=== PATIENT | male | born 1995 | race Caucasian/White ===

== ENCOUNTER 2017-07-11 17:07 | Emergency (ER) | payer OTHER ==
[2017-07-11] MEDS ORDERED: ONDANSETRON 4 MG/2 ML VIAL IVP ONE ×2 (17:17→18:39)
[2017-07-11] MEDS ORDERED: fentaNYL 100 MCG/2 ML INJ NASAL ONE (17:17)
[2017-07-11] MEDS ORDERED: DIAZEPAM 10 MG/2 ML SYR IVP ONE (17:17)
[2017-07-11] MEDS ORDERED: NS 1,000 ML IV ONE ×2 (17:17→18:39)
--- NOTE | 2017-07-11 17:17 | EDPHY ---
H & P HPI/ROS: HPI CHIEF COMPLAINT: Snowboarding accident, low back pain HISTORY OF PRESENT ILLNESS: This patient otherwise healthy 22-year-old male no significant medical history except for anxiety he presents emergency room for low back pain after he fell on his snowboard. Patient reports he was trying to do a 360 and caught the back edge of his snowboard this caused an delayed directly on his low back. He now has midline low back pain in the lumbar region. He denies any focal numbness or tingling he denies any saddle anesthesia he denies any leg weakness. Pain is mainly in his midline lumbar low region. He received 200 mcg of IV fentanyl in route. He fell at [facility] [place]. Past Medical History: Anxiety Past Surgical History: No significant surgical history Social History: Denies drugs alcohol tobacco products except occasional marijuana. Family History: Noncontributory ROS REVIEW OF SYSTEMS: A comprehensive 10 point review of systems is otherwise negative aside from elements mentioned in the history of present illness. Exam Constitutional appears well nontoxic, triage nursing summary reviewed, vital signs reviewed, awake/alert. Eyes normal conjunctivae and sclera, EOMI, PERRLA. HENT normal inspection, atraumatic, moist mucus membranes, no epistaxis, neck supple/ no meningismus, no raccoon eyes. Respiratory clear to auscultation bilaterally, normal breath sounds, no respiratory distress, no wheezing. Cardiovascular rate normal, regular rhythm, no murmur, no edema, distal pulses normal. Gastrointestinal soft, non-tender, no rebound, no guarding, normal bowel sounds, no distension, no pulsatile mass. Genitourinary no CVA tenderness. Musculoskeletal tender palpation in the midline lumbar region, and paravertebral region lumbar spine, no obvious step-offs or crepitus on exam,, full range of motion, no calf swelling, no tenderness of extremities, no meningismus, good pulses, neurovascularly intact. No leg weakness. No saddle anesthesia. Skin pink, warm, & dry, no rash, skin atraumatic. Neurologic awake, alert and oriented x 3, AAOx3, moves all 4 extremities equally, motor intact, sensory intact, CN II-XII intact, normal cerebellar, normal vision, normal speech. Psychiatric normal mood/affect. Heme/Lymph/Immune no lymphadenopathy. Differential Diagnosis: Includes but is not limited to in a particular order lumbar strain, lumbar compression fracture, degenerative disc disease, muscle spasm Medical Decision Making: Plan for this patient IV establishment blood draw, IV fluids for hydration, 100 mcg IV fentanyl for pain control 2.5 mg IV Valium for muscle spasm, CT lumbar spine. Re-evaluation: CT of the lumbar spine called to me by Dr. Jonn Montanez. Reason for CT scan trauma; this shows a stress fracture of the right L4. However no compression fracture. 1839: I did re-evaluate this patient this time. He is feeling better but still has 4/10 low back pain. Ovary medicated with Toradol, IV fluids and Zofran for nausea. 1910: Patient is feeling much better after IV Toradol. He p.o. challenge well. He is requesting discharge. Will ambulate to see if he can walk with his back injury. If he is unable to ambulate he will need to be admitted to the hospital. 1912: This patient ambulated well throughout the emergency room without any difficulty. Source: Patient, EMS Constitutional: Initial Vital Signs Temperature (C) 36.6 C 07/11/17 17:07 Heart Rate 86 07/11/17 17:07 Respiratory Rate 22 H 07/11/17 17:07 Blood Pressure 103/77 07/11/17 17:07 O2 Sat (%) 98 07/11/17 17:07 O2 Delivery Mode Room Air Allergies/Adverse Reactions: No Known Allergies Allergy (Verified 07/11/17 17:13) Home Medications: Medication Instructions Recorded Hydrocodone/APAP 5/325 [[place] 1 - 2 tab PO Q4H PRN #10 tab 07/11/17 5/325] Ibuprofen [Motrin (*)] 800 mg PO Q6-8PRN #10 tab 07/11/17 Medical Decision Making - Diagnostics Imaging Results: Imaging Impressions Lumbar Spine CT 07/11/17 17:17 Impression: 1. Lucency associated with sclerosis in the right L4 pedicle, suggesting stress fracture. If pain persists and clinical suspicion warrants, consider MRI. 2. Additional findings as above. Findings discussed with Man Zamudio MD, 07/11/2017 at 18:11. - Data Points Laboratory Results: Laboratory Results 07/11/17 18:04 07/11/17 18:04 07/11/17 07/11/17 18:04 18:04 WBC 16.61 10^3/uL H 10^3/uL (3.80-9.50) RBC 5.06 10^6/uL 10^6/uL (4.40-6.38) Hgb 16.3 g/dL g/dL (13.7-17.5) Hct 45.5 % % (40.0-51.0) MCV 89.9 fL fL (81.5-99.8) MCH 32.2 pg pg (27.9-34.1) MCHC 35.8 g/dL g/dL (32.4-36.7) RDW 12.2 % % (11.5-15.2) Plt Count 260 10^3/uL 10^3/uL (150-400) MPV 11.8 fL H fL (8.7-11.7) Neut % (Auto) 77.7 % H % (39.3-74.2) Lymph % (Auto) 13.9 % L % (15.0-45.0) [place] % (Auto) 6.7 % % (4.5-13.0) Eos % (Auto) 0.5 % L % (0.6-7.6) Baso % (Auto) 0.4 % % (0.3-1.7) Nucleat RBC Rel Count 0.0 % % (0.0-0.2) Absolute Neuts (auto) 12.91 10^3/uL H 10^3/uL (1.70-6.50) Absolute Lymphs (auto) 2.31 10^3/uL 10^3/uL (1.00-3.00) Absolute Monos (auto) 1.12 10^3/uL H 10^3/uL (0.30-0.80) Absolute Eos (auto) 0.08 10^3/uL 10^3/uL (0.03-0.40) Absolute Basos (auto) 0.06 10^3/uL 10^3/uL (0.02-0.10) Absolute Nucleated RBC 0.00 10^3/uL 10^3/uL (0-0.01) Immature Gran % 0.8 % % (0.0-1.1) Immature Gran # 0.13 10^3/uL H 10^3/uL (0.00-0.10) Sodium 144 mEq/L mEq/L (134-144) Potassium 4.7 mEq/L mEq/L (3.5-5.2) Chloride 103 mEq/L mEq/L (97-110) Carbon Dioxide 22 mEq/l mEq/l (22-31) Anion Gap 19 mEq/L H mEq/L (8-16) BUN 17 mg/dL mg/dL (7-23) Creatinine 0.9 mg/dL mg/dL (0.7-1.3) Estimated GFR > 60 Glucose 65 mg/dL L mg/dL (70-100) Calcium 10.6 mg/dL H mg/dL (8.5-10.4) Medications Given: Discontinued Medications Diazepam (Valium Injection) 2.5 mg IVP EDNOW ONE Stop: 07/11/17 17:18 Last Admin: 07/11/17 17:27 Dose: 2.5 mg Fentanyl (Sublimaze) 50 mcg NASAL EDNOW ONE Stop: 07/11/17 17:18 Last Admin: 07/11/17 17:57 Dose: Not Given Fentanyl (Sublimaze) 50 mcg IVP EDNOW ONE Stop: 07/11/17 17:21 Last Admin: 07/11/17 17:27 Dose: 50 mcg Sodium Chloride (Ns) 1,000 mls @ 0 mls/hr IV ONCE ONE PRN Reason: Wide Open Stop: 07/11/17 17:18 Last Admin: 07/11/17 17:27 Dose: 1,000 mls Sodium Chloride (Ns) 1,000 mls @ 0 mls/hr IV ONCE ONE PRN Reason: Wide Open Stop: 07/11/17 18:40 Last Admin: 07/11/17 18:45 Dose: 1,000 mls Ketorolac Tromethamine (Toradol) 15 mg IVP EDNOW ONE Stop: 07/11/17 18:40 Last Admin: 07/11/17 18:46 Dose: 15 mg Ondansetron HCl (Zofran) 4 mg IVP EDNOW ONE Stop: 07/11/17 17:18 Last Admin: 07/11/17 17:27 Dose: 4 mg Ondansetron HCl (Zofran) 4 mg IVP EDNOW ONE Stop: 07/11/17 18:40 Last Admin: 07/11/17 18:46 Dose: 4 mg Departure - Departure Disposition: Home, Routine, Self-Care Clinical Impression: Back pain Qualifiers: Back pain location: low back pain Chronicity: acute Back pain laterality: unspecified Sciatica presence: without sciatica Qualified Code(s): M54.5 - Low back pain L4 vertebral fracture Qualifiers: Encounter type: initial encounter Fracture type: closed Fracture morphology: other fracture Qualified Code(s): S32.048A - Other fracture of fourth lumbar vertebra, initial encounter for closed fracture Condition: Good Instructions: Low Back Strain (ED), Arthralgia (ED), Back Pain (ED) Additional Instructions: 1. Take it easy. Rest. 2. Take anti-inflammatory pain medicine like ibuprofen for mild pain. 3. Take [place] for severe pain. 4. Ice your back. 5. Return emergency review of worsening pain questions or concerns. Referrals: Patient,NotPresent [Unknown] - As per Instructions Teja Bourne MD [Medical Doctor] - As per Instructions Prescriptions: Hydrocodone/APAP 5/325 [[place] 5/325] 1 - 2 tab PO Q4H PRN #10 tab PRN Reason: Pain, Moderate Ibuprofen [Motrin (*)] 800 mg PO Q6-8PRN #10 tab
[2017-07-11] MEDS ORDERED: fentaNYL 100 MCG/2 ML INJ IVP ONE (17:20)
[2017-07-11 18:06] LABS: PLATELET COUNT 260 10^3/uL (150-400)
[2017-07-11 18:36] VITALS: RESP 18
[2017-07-11] MEDS ORDERED: KETOROLAC 15 MG/1 ML SDV IVP ONE (18:39)
[2017-07-11 19:26] VITALS: BP 112/70; PULSE 82; TEMP 98.2; O2SAT 95
== END 2017-07-11 19:25 | disposition home or self-care (01) ==
DX: S32.048A Other fracture of fourth lumbar vertebra, initial encounter for closed fracture (principal); V00.311A Fall from snowboard, initial encounter; Y99.8 Other external cause status; Y93.23 Activity, snow (alpine) (downhill) skiing, snowboarding, sledding, tobogganing and snow tubing
CPT/HCPCS: 96374; J1885; J2405; J3010

== ENCOUNTER 2018-09-01 19:28 | Emergency (ER) | payer OTHER ==
[2018-09-01] MEDS ORDERED: TETANUS, DIPHTHERIA TOX (7YR+) 0.5 ML INJ IM ONE (19:42)
--- NOTE | 2018-09-01 19:47 | EDPHY ---
H & P Time Seen by Provider: 09/01/18 19:38 HPI/ROS: CHIEF COMPLAINT: Head injury HISTORY OF PRESENT ILLNESS: The patient is a 23-year-old male who presents emergency department after sustaining head injury. Patient states he was home when he received some bad news. This caused him to "hyperventilate."He felt lightheaded. He fell and struck his head. He is not sure if he lost consciousness after striking his head. He now has a left-sided headache. This is mild. The he has no focal weakness or numbness. No visual change. Patient also has a small laceration on his forehead. Patient denies any neck pain. No chest pain or shortness of breath. No abdominal pain. The patient is unsure of his last tetanus update. REVIEW OF SYSTEMS: 10 systems were reveiwed and are negative with the exception of the elements mentioned in the history of present illness. Past Medical/Surgical History: TMJ Social history: The patient does not smoke Smoking Status: Former smoker Physical Exam: Vitals noted GENERAL: No acute distress, alert. HEENT: Eyes normal to inspection, normal pharynx, no signs of dehydration. Patient has a 1 cm vertical laceration medial aspect of his left eyebrow. No deep structures involved. No palpable foreign body. Patient has no scalp hematoma. Neck: Normal appearing. Nexus negative RESPIRATORY: Clear to auscultation bilaterally, no rales, rhonchi or wheezing. CVS: Regular rate and rhythm, no rubs, murmurs, or gallops. ABDOMEN: Soft, nontender, nondistended, no organomegaly. BACK: Normal to inspection, no CVA tenderness. No spinal tenderness SKIN: Normal color, no rash, warm, dry. No pallor. EXTREMITIES: Normal appearing. No signs of trauma. NEURO/PSYCH: Alert and oriented, normal mood and affect, normal motor sensory exam. No obvious cranial nerve deficit. Constitutional: Initial Vital Signs Temperature (C) 36.7 C 09/01/18 19:31 Heart Rate 62 09/01/18 19:31 Respiratory Rate 17 09/01/18 19:31 Blood Pressure 117/69 09/01/18 19:31 O2 Sat (%) 100 09/01/18 19:31 O2 Delivery Mode Room Air Allergies/Adverse Reactions: No Known Allergies Allergy (Verified 09/01/18 19:31) Home Medications: Medication Instructions Recorded Flexeril 10 MG (*) 09/01/18 Medical Decision Making - Diagnostics Imaging Results: Imaging Impressions Head CT 09/01/18 19:43 Impression: No acute intracranial hemorrhage or calvarial fracture. Lor Sexton was notified of these findings by telephone at 8:14 PM on 2018 Procedures: Laceration repair with skin glue Patient's wound was cleaned. Skin glue was apply the standard fashion. Good approximation was obtained. ED Course/Re-evaluation: In the emergency department I discussed possible etiologies with the patient. Answered all his questions. Because it is unclear if the patient lost consciousness and head CT was ordered. Patient's wound was cleaned Patient was given tetanus update. Head CT: Please refer the dictated report. No acute disease noted. Patient was given warnings prior to leaving. He will return with worsening symptoms. He was given wound care instructions prior to leaving. Differential Diagnosis: My differential includes but is not limited to subarachnoid hemorrhage, subdural hematoma epidural hematoma, contusion, dysrhythmia, hyperventilation, laceration - Data Points Medications Given: Discontinued Medications Diphtheria/Tetanus/Acell Pertussis (Boostrix) 0.5 ml IM .ONCE ONE Stop: 09/01/18 19:51 Last Admin: 09/01/18 20:04 Dose: 0.5 ml Tetanus/Diphtheria Toxoids Adsorbed (Tetanus-Diphtheria Grifols) 0.5 ml IM .ONCE ONE Stop: 09/01/18 19:43 Last Admin: 09/01/18 20:05 Dose: Not Given Departure - Departure Disposition: Home, Routine, Self-Care Clinical Impression: Forehead laceration Qualifiers: Encounter type: initial encounter Qualified Code(s): S01.81XA - Laceration without foreign body of other part of head, initial encounter Condition: Good Instructions: Laceration (ED), Head Injury (ED), Skin Adhesive Care (ED) Additional Instructions: Return with increasing headache, repeat episodes of fainting, weakness, numbness or any other concerns. Referrals: Kellee Bansal MD [Primary Care Provider] - 3-4 days, if not improved
[2018-09-01] MEDS ORDERED: TDAP ADULT 0.5 ML INJ (BOOSTRIX) IM ONE (19:50)
[2018-09-01] MEDS ORDERED: SKIN ADHESIVE (DERMABOND) 1 EACH TP ONE (19:51)
[2018-09-01 20:36] VITALS: BP 114/66
== END 2018-09-01 20:36 | disposition home or self-care (01) ==
PROC: 0HQ1XZZ Repair Face Skin, External Approach (ICD-10-PCS; principal; 2018-09-01)
DX: S01.81XA Laceration without foreign body of other part of head, initial encounter (principal); Z23 Encounter for immunization; W01.198A Fall on same level from slipping, tripping and stumbling with subsequent striking against other object, initial encounter; Y92.9 Unspecified place or not applicable; Y99.9 Unspecified external cause status; Y93.9 Activity, unspecified; Z87.891 Personal history of nicotine dependence